=== PATIENT | female | born 1950 | race Caucasian/White ===

== ENCOUNTER 2023-04-18 11:20 | Emergency (ER) | payer MEDICARE, SELFPAY ==
--- NOTE | ~2023-04-18 | XR_ITS ---
XR knee RT 3V DATE: 04/18/2023 11:47 INDICATION: Generalized right knee pain radiating down leg TECHNIQUE: 3 views COMPARISON: None FINDINGS: There is fullness in the suprapatellar bursa area suggesting suprapatellar knee joint effus ion. There is tricompartment moderate osteoarthritis. No fracture, dislocation, periosteal reaction or bone destruction is evident. IMPRESSION: Knee joint effusion Moderate tricompartment osteoarthritis Reviewed, dictated and finalized at [facility].
--- NOTE | ~2023-04-18 | US_ITS ---
US venous doppler LE RT DATE: 04/18/2023 11:54 INDICATION: Right lower extremity pain TECHNIQUE: Real-time and color flow imaging and Doppler analysis of the veins of the right lower extr emity COMPARISON: None FINDINGS: Right greater saphenous vein is patent. There is spontaneous and phasic flow and normal aug mentation and color flow signal and normal compression of the deep veins of the right lower extremity . IMPRESSION: No evidence of deep venous thrombosis of right leg Reviewed, dictated and finalized at [facility]. Reviewed, dictated and finalized at [facility].
[2023-04-18 11:26] VITALS: BP 107/62; PULSE 68; RESP 18; TEMP 36.2; O2SAT 100
[2023-04-18] MEDS: KETOROLAC 30 MG/ML VIAL (*BKC) IM (11:49)
--- NOTE | 2023-04-18 12:44 | ED.GENADULT ---
HPI - General Adult General Chief complaint: Extremity Injury, Lower Stated complaint: R leg pain Time Seen by Provider: 04/18/23 11:32 History of Present Illness HPI narrative: Patient is a 73-year-old female who presents ER with right lower extremity pain. Ongoing over the last 3 days. Patient recently moved here with her an hour into an apartment. She unloaded the car 5 days ago. They have been using a lot of stairs. She began developing discomfort in her thigh but has not taken any pain medication. No known injury. No fevers or chills. Neurovascular is still leg. She does report that she was bit by a black antin the same extremity but there is no wound. Related Data Allergies Allergy/AdvReac Type Severity Reaction Status Date / Time Penicillins Allergy Unknown Verified 04/18/23 11:58 Sulfa (Sulfonamide Allergy Unknown Verified 04/18/23 11:58 Antibiotics) Review of Systems Review of Systems: All systems reviewed & are unremarkable except as noted in HPI and below Constitutional: Constitutional: Denies chills, Denies fatigue and Denies fever(s) Musculoskeletal: Musculoskeletal: Denies arthralgias, Denies joint swelling and Denies muscle cramps Integumentary/Breasts: Skin/Breast: Denies erythema and Denies rash Neurologic: Denies focal weakness and Denies numbness PMFSH Past Medical History Medical History (Updated 04/18/23 @ 12:54 by Napoleon Graham MD) Anxiety Arthritis Hyperlipidemia Surgical History Surgical History (Updated 04/18/23 @ 12:50 by Napoleon Graham MD) No pertinent past surgical history Exam Narrative: GENERAL: Well-appearing, well-nourished, and in no acute distress. HEAD: Normocephalic, atraumatic. ENT: Mucous membranes moist. CHEST: Clear to auscultation. No respiratory distress. HEART: Regular rate and rhythm. Normal peripheral pulses. EXTREMITIES: Normal range of motion. No edema. Mild effusion right knee. Mild discomfort right distal thigh anteriorly. No redness or warmth to the knee joint. SKIN: Warm, dry, no rash. NEURO: Alert and oriented x3. PSYCH: Normal mood and affect. Course Course Emergency Course: Patient resting comfortably. No evidence of DVT. Feel symptoms are likely related to arthritis in the knee that are causing the effusion. Is not felt patient has a septic joint as she is without fever. She has no redness or warmth to affected groin. To be started on anti-inflammatories and recommend follow-up with her primary care physician. Vital Signs Vital signs: Vital Signs Temperature 97.2 F L 04/18/23 11:26 Pulse Rate 68 04/18/23 11:26 Respiratory Rate 18 04/18/23 11:26 Blood Pressure 107/62 04/18/23 11:26 Pulse Oximetry 100 04/18/23 11:26 Oxygen Delivery Room Air 04/18/23 11:26 Temperature 97.2 F L 04/18/23 11:26 Pulse Rate 68 04/18/23 11:26 Respiratory Rate 18 04/18/23 11:26 Blood Pressure 107/62 04/18/23 11:26 Pulse Oximetry 100 04/18/23 11:26 Oxygen Delivery Room Air 04/18/23 11:26 Medical Decision Making Vital Signs Vital Signs: Vital Signs Temperature 97.2 F L 04/18/23 11:26 Pulse Rate 68 04/18/23 11:26 Respiratory Rate 18 04/18/23 11:26 Blood Pressure 107/62 04/18/23 11:26 Pulse Oximetry 100 04/18/23 11:26 Oxygen Delivery Room Air 04/18/23 11:26 Temperature 97.2 F L 04/18/23 11:26 Pulse Rate 68 04/18/23 11:26 Respiratory Rate 18 04/18/23 11:26 Blood Pressure 107/62 04/18/23 11:26 Pulse Oximetry 100 04/18/23 11:26 Oxygen Delivery Room Air 04/18/23 11:26 Imaging Data Radiologist's impression: ITS Impressions Knee X-Ray 04/18/23 12:35 IMPRESSION: Knee joint effusion Moderate tricompartment osteoarthritis Venous Doppler Study 04/18/23 12:38 IMPRESSION: No evidence of deep venous thrombosis of right leg Discharge Plan Discharge Clinical Impression: Effusion of knee Patient
== END 2023-04-18 13:17 | disposition home or self-care (01) ==
PROVIDERS: Emergency Provider Emergency Medicine
DX: M25.461 Effusion, right knee (principal); E78.5 Hyperlipidemia, unspecified
CPT/HCPCS: 73562; 93971; 96372; 99284; J1885

== ENCOUNTER 2025-01-26 10:39 | Emergency (ER) | payer MEDICARE, SELFPAY ==
--- NOTE | 2025-01-26 10:47 | ED.FEMALEGU ---
HPI - Female Genitourinary General Chief complaint: Urogenital-Female Stated complaint: UTI SYMPTOMS Time Seen by Provider: 01/26/25 10:47 Source: patient Mode of arrival: ambulatory Limitations: no limitations History of Present Illness HPI Narrative: Patient presents today complaining of burning with urination x 2 days. She took azo on Thursday and had some relief. She states that her symptoms have gotten worse over the last 2 days. Denies any kidney issues or back pain. Related Data Allergies Allergy/AdvReac Type Severity Reaction Status Date / Time Penicillins Allergy Unknown Verified 01/26/25 11:00 Sulfa (Sulfonamide Allergy Unknown Verified 01/26/25 11:00 Antibiotics) Review of Systems Review of Systems: CONSTITUTIONAL: Denies body aches, fever, chills, or sweats. CARDIOVASCULAR: Denies chest pain, palpitations, or edema. RESPIRATORY: Denies cough or dyspnea. GENITOURINARY: Report burning with urination. SKIN: Denies rash, itching, or wounds. MUSCULOSKELETAL: Denies back pain, joint pain, or myalgia. NEUROLOGIC: Denies headache, numbness, tingling, or weakness. PSYCH: ?Denies depression or anxiety. All systems reviewed & are unremarkable except as noted in HPI and below PMFSH Past Medical History Medical History (Updated 01/26/25 @ 11:10 by Desi Martin APRN) Arthritis Hyperlipidemia Anxiety Surgical History Surgical History (Updated 04/18/23 @ 12:50 by Napoleon Graham MD) No pertinent past surgical history Comments At time of signature, I have reviewed and agree with nursing past medical, surgical, social and family history unless otherwise noted. Please see nursing chart for further information. There is no relevant family history pertinent to the presenting complaint. Exam Narrative: GENERAL: Well-appearing, well-nourished, and in no acute distress. HEAD: Normocephalic, atraumatic. NECK: Normal AROM. ?Supple. ?No lymphadenopathy. CHEST: ?No respiratory distress. Clear to auscultation. HEART: Regular rate and rhythm. No murmur appreciated. Normal peripheral pulses. MUSCULOSKELETAL: No bony tenderness. EXTREMITIES: Normal range of motion. No edema. SKIN: Warm, dry, no rash. Capillary refill normal. ?Normal skin turgor. NEURO: No focal deficits. Alert and oriented x3. Gait steady. PSYCH: ?Normal affect. ?No signs of depression or anxiety. Course Course Level of Care: Express Care Visit Vital Signs Vital signs: Vital Signs Temperature 97.8 F 01/26/25 10:53 Pulse Rate 72 01/26/25 10:53 Respiratory Rate 16 01/26/25 10:53 Blood Pressure 124/62 01/26/25 10:53 Pulse Oximetry 97 01/26/25 10:53 Temperature 97.8 F 01/26/25 10:53 Pulse Rate 72 01/26/25 10:53 Respiratory Rate 16 01/26/25 10:53 Blood Pressure 124/62 01/26/25 10:53 Pulse Oximetry 97 01/26/25 10:53 Reviewed. MDM - Female Genitourinary MDM Narrative Medical decision making narrative: Discussed physical exam findings. Antibiotic prescribed for UTI. Advised supportive measures and signs/symptoms to go to the ER. Pt is appropriate for outpatient treatment and follow up. Critical Care Time Critical Care Time Critical Care Time: No Discharge Plan Discharge Clinical Impression: Urinary tract infection Qualifiers: Urinary tract infection type: acute cystitis Hematuria presence: without hematuria Qualified Code(s): N30.00 - Acute cystitis without hematuria Patient Disposition: Home Condition: Stable Instructions: Antibiotic Form, Urinary Tract Infection in Women (DC) Additional Instructions: Take the antibiotic as prescribed The urine will be sent of for a culture to identify what type of bacteria is causing your infection. If the culture shows that the antibiotic will not get rid of your infection, you will be notified and a new antibiotic will be called in for you. Increase water intake. You will need to follow up with your PCP, call to schedule an appointment. Go to the ER for any worsening symptoms or concerns Patient Language: [place] Island[place] Prescriptions: New nitrofurantoin monohyd/m-cryst [Macrobid] 100 mg capsule 100 mg PO Q12H 5 Days Qty: 10 0RF Rx Instructions: must administer with a meal/food No Action hydrocodone-acetaminophen 5-325 mg tablet 1 tablet PO Q6H PRN (Reason: pain) Qty: 10 0RF Follow-up/Referrals: UNKNOWN,DOCTOR [Primary Care Provider] - Time of Disposition: 11:10
[2025-01-26 10:53] VITALS: BP 124/62; PULSE 72; RESP 16; TEMP 36.6; O2SAT 97
[2025-01-26 11:05] LABS: EDUAAPPEAR Cloudy; EDUABILI Negative (Negative); EDUABLOOD Negative (Negative); EDUACOLOR1 Dark; EDUAGLUCOSE Negative (Negative); EDUAKETONE Negative (Negative); EDUALEUKO Trace (Negative); EDUANITRATE Positive (Negative); EDUAPROTEIN Trace (Negative); EDUASPGRAVITY 1.025
== END 2025-01-26 11:14 | disposition home or self-care (01) ==
DX: N30.00 Acute cystitis without hematuria (principal); E78.5 Hyperlipidemia, unspecified; M19.90 Unspecified osteoarthritis, unspecified site
CPT/HCPCS: 81003; 87086; 87186; 99213; G0463